=== PATIENT | male | born 1960 | race Two or more races ===

== ENCOUNTER 2018-11-18 15:14 | Emergency (ER) | payer OTHER ==
[2018-11-18 15:22] VITALS: BP 157/92
[2018-11-18] MEDS ORDERED: LORATADINE 10 MG TABLET PO STA (15:40)
[2018-11-18] MEDS ORDERED: predniSONE 20 MG TABLET PO STA (15:40)
--- NOTE | 2018-11-18 15:42 | ED Physician Documentation ---
PD HPI SKIN - Stated complaint Stated Complaint: WASP STING - Chief complaint Chief Complaint: Allergic Rx - History obtained from History obtained from: Patient - History of Present Illness Timing - onset: Today (57-year-old gentleman who is camping. He was stung by a wasp or bee on the left middle finger just prior to arrival with swelling of that whole hand. No trouble breathing, no diffuse rash. No history of severe bee sting reaction.) Review of Systems Constitutional: denies: Fever Respiratory: denies: Dyspnea Skin: denies: Rash PD PAST MEDICAL HISTORY - Past Medical History Past Medical History: No - Present Medications Home Medications: Ambulatory Orders Medication Instructions Recorded Confirmed Loratadine [Claritin] 10 mg PO DAILY #10 tablet 11/18/18 predniSONE [Deltasone] 60 mg PO DAILY 5 Days tablet 11/18/18 - Allergies Allergies/Adverse Reactions: Allergies Allergy/AdvReac Type Severity Reaction Status Date / Time No Known Drug Allergies Allergy Verified 11/18/18 15:22 - Social History Does the pt smoke?: No Smoking Status: Never smoker PD ED PE NORMAL - Vitals Vital signs reviewed: Yes - General General: Alert and oriented X 3, No acute distress - Extremities Extremities: Other (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 The wedding ring in place was pretty tight and it was removed with lubricating jelly during exam. The angioedema goes back just to the wrist. No limited range of motion. No obvious sting deborah.) - Neuro Neuro: Alert and oriented X 3, Normal speech Results - Vitals Vitals: Vital Signs - 24 hr 11/18/18 15:18 Temperature 36.4 C L Heart Rate 54 L Respiratory 19 Rate Blood Pressure 157/92 H O2 Saturation 98 Oxygen O2 Source Room air PD MEDICAL DECISION MAKING - ED course ED course: This is a 57-year-old gentleman with localized allergic reaction to a wasp or bee sting without retained stinger. His wedding ring was removed. There is no evidence of anaphylaxis. He is given steroids and Claritin. Departure - Departure Disposition: 01 Home, Self Care Clinical Impression: Local reaction to insect sting Qualifiers: Encounter type: initial encounter Injury intent: accidental or unintentional Qualified Code(s): T63.481A - Toxic effect of venom of other arthropod, accidental (unintentional), initial encounter Condition: Good Record reviewed to determine appropriate education?: Yes Instructions: ED Bite Sting Insect Local Allergic React Prescriptions: Loratadine [Claritin] 10 mg PO DAILY #10 tablet predniSONE [Deltasone] 60 mg PO DAILY 5 Days tablet Comments: Elevate it, the swelling may go up your arm which is not a big deal, but if you develop swelling around your face or in another extremity please return for reevaluation. Or if you develop a rash anywhere besides in the hand. You can start wearing your wedding ring again when all the swelling is down. Your blood pressure was elevated today on check into the emergency department. This does not mean that you have hypertension, it is a common phenomenon to come to the emergency department and have elevated blood pressure. I recommend that you see your primary care physician within the week to have it rechecked when you are feeling better.
== END 2018-11-18 15:48 | disposition home or self-care (01) ==
LOC: ED 15:14
DX: T63.461A Toxic effect of venom of wasps, accidental (unintentional), initial encounter (principal); T78.3XXA Angioneurotic edema, initial encounter; X58.XXXA Exposure to other specified factors, initial encounter; R03.0 Elevated blood-pressure reading, without diagnosis of hypertension
CPT/HCPCS: 99282; 99283; A9270; J7512